=== PATIENT | female | born 1985 | race Caucasian/White ===

== ENCOUNTER 2017-02-25 20:08 | Emergency (ER) | payer OTHER ==
--- NOTE | 2017-02-25 21:59 | RAD ---
LEFT HAND THREE VIEWS: Date: 02-25-17 FINDINGS: No fracture was appreciated. All bones appeared intact. The carpal relations seem normal. IMPRESSION: No acute finding. POS: HOME
== END 2017-02-25 20:36 | disposition home or self-care (01) ==
LOC: BURERS 20:08
DX: S60.222A Contusion of left hand, initial encounter (principal); W19.XXXA Unspecified fall, initial encounter

== ENCOUNTER → 2019-10-21 | Emergency (ER) | payer OTHER ==
[~2019-10-21] MED LIST: Ibuprofen 200 MG TAB ONE
--- NOTE | 2019-10-21 19:05 | RAD ---
RIGHT ANKLE THREE VIEWS: 10/21/19 No fracture was seen. There is lateral soft tissue swelling. The joint surfaces appear normal. A calc aneal spur was noted. IMPRESSION: Lateral swelling. POS: HOME
== END ==
LOC: BURERS 14:50
DX: S93.401A Sprain of unspecified ligament of right ankle, initial encounter (principal); X50.1XXA Overexertion from prolonged static or awkward postures, initial encounter